=== PATIENT | female | born 1980 | race Caucasian/White ===

== ENCOUNTER 2023-03-28 14:55 | Emergency (ER) | payer OTHER, BC, SELFPAY ==
--- NOTE | 2023-03-16 15:21 | CT_ITS ---
[address] [address] Patient Name: GLADIS ANDRADE MRN: [id number] date: 1980 Sex: F Assigned Patient Location: ER Current Patient Location: ER Accession/Order Number: [id number] Exam Date: 03/16/2023 15:52 Report Date: 03/28/2023 16:27 At the request of: JAYLA SANTAMARIA Procedure: CT cervical spine wo con EXAM: CT cervical spine wo con HISTORY: Hit head COMPARISON: None. TECHNIQUE: axial CT imaging. Sagittal and coronal reformatted reconstructed sequences were performed FINDINGS: IMPRESSION: Mild reversal of the normal cervical lordosis. Vertebral body heights and alignments exhibit no fracture or listhesis. The dens and lateral masses of C1 are symmetric. Age related intervertebral disc space narrowing, endplate and uncovertebral changes. No prevertebral soft tissue edema. Electronically authenticated by: GORDON NICOLE Date: 03/28/2023 16:27
[2023-03-28 14:59] VITALS: BP 124/87; PULSE 80; RESP 18; TEMP 36.6; O2SAT 99; BMI 33.5
--- NOTE | 2023-03-28 15:20 | CT_ITS ---
The [address] [address] Patient Name: GLADIS ANDRADE MRN: [id number] date: 1980 Sex: F Assigned Patient Location: ER Current Patient Location: ER Accession/Order Number: [id number] Exam Date: 03/28/2023 15:51 Report Date: 03/28/2023 16:25 At the request of: JAYLA SANTAMARIA Procedure: CT head/brain wo con EXAM: CT head/brain wo con HISTORY: pain COMPARISON: None. TECHNIQUE: Axial CT scans through the head were obtained without IV contrast administration. Dose reduction techniques were achieved by using: automated exposure control and/or adjustment of mA and /or kV according to patient size and/or use of iterative reconstruction technique. FINDINGS: There is no acute intracranial hemorrhage or abnormal extra-axial fluid collection. No mass effect or midline shift is seen. There is no evidence of large acute territorial infarction. There is no hydrocephalus. To the limit of CT, the posterior fossa appears unremarkable. The calvaria and extra cranial soft tissues are unremarkable. The visualized orbits show no abnormal mass. The visualized paranasal sinuses show no air-fluid level. Mastoid air cells are clear. CT/CT head/brain wo con IMPRESSION: No acute intracranial process. Electronically authenticated by: ASHTYN QUEEN Date: 03/28/2023 16:25
[2023-03-28] MEDS: PROMETHAZINE HCL 25 MG/ML VIAL IM (16:46)
[2023-03-28] MEDS: KETOROLAC TROMETHAMINE 60 MG/2 ML VIAL IM (16:46)
[2023-03-28] MEDS: DEXAMETHASONE SOD PHOS 10 MG/ML VIAL PO (16:46)
[2023-03-28 16:47] VITALS: BP 113/71; PULSE 57; O2SAT 99
--- NOTE | 2023-03-28 17:01 | ED_ITS ---
HPI - General Adult General Chief complaint: Head Injury Stated complaint: BWC - UPPER EXTREMITY INJURY Time Seen by Provider: 03/28/23 15:04 Source: patient Mode of arrival: walk-in Limitations: no limitations History of Present Illness HPI narrative: 42-year-old female presents to the emergency room with a chief complaint of headache. Patient had a work injury on March 16. He was in the last lifting herself up and hit her head on the left parietal side with a shelf. She states she developed a headache. She had not been seen by any providers prior to today. She's had the call of sick from work the last couple days due to headache.does have history of migraine headaches but states this pain is different. She is alert and oriented no acute distress area complains of mild photophobia. Vital signs are stable. Head is normocephalic Related Data Allergies Allergy/AdvReac Type Severity Reaction Status Date / Time No Known Drug Allergies Allergy Verified 03/28/23 15:02 Review of Systems ROS Narrative All Systems are negative except as noted/marked.All systems reviewed and otherwise negative PFSH [facility] Social History Smoking status: Current every day smoker Exam Narrative Exam Narrative: Nurses note and vital signs reviewed and patient is not hypoxic. General: The patient appears well and in no apparent distress. Patient is resting comfortably on cart. Skin: Warm, dry, no pallor noted. There is no rash noted. Head: Normocephalic, atraumatic neck: : Neck tenderness, no midline tenderness, full range of motion Eye: Normal conjunctiva, no drainage, EOMI. PERRL Ears, Nose, Mouth, and Throat: oral mucosa is moist. Nares patent. Mouth without vesicles. Ear canals patent. Tm's without Erythema Cardiovascular: Regular Rate and Rhythm Musculoskeletal: The patient has no evidence of calf tenderness, no pitting edema, symmetrical pulses noted bilaterally Neurological: A&O x4, normal speech Psychiatric: Cooperative Constitutional Vital Signs, click to edit/add: Last Vital Signs Temp 97.8 F 03/28/23 14:59 Pulse 57 L 03/28/23 16:47 Resp 18 03/28/23 14:59 BP 113/71 03/28/23 16:47 Pulse Ox 99 03/28/23 16:47 O2 Del Method Room Air 03/28/23 14:59 Course Vital Signs Vital signs: Vital Signs Temperature 97.8 F 03/28/23 14:59 Pulse Rate 80 03/28/23 14:59 Respiratory Rate 18 03/28/23 14:59 Blood Pressure 124/87 03/28/23 14:59 Pulse Oximetry 99 03/28/23 14:59 Oxygen Delivery Method Room Air 03/28/23 14:59 Temperature 97.8 F 03/28/23 14:59 Pulse Rate 57 L 03/28/23 16:47 Respiratory Rate 18 03/28/23 14:59 Blood Pressure 113/71 03/28/23 16:47 Pulse Oximetry 99 03/28/23 16:47 Oxygen Delivery Method Room Air 03/28/23 14:59 Medical Decision Making MDM Narrative Medical decision making narrative: and presented here with a closed head injury from March 16. She's had a headache on and off for the past several days and have worsened over time. With photophobia. Head and neck CT read by radiology as no acute abnormalities. Patient was medicated here with Toradol Phenergan and Decadron. Believe the pain is post concussive versus head injury.patient instructed to follow up with occupational health here at [facility]. She does have a Workmen's Comp. and number from [facility]. Patient verbalizes understanding agrees with plan of care. Differential Diagnosis Differential Diagnosis: postconcussive syndrome, headache, head pain, closed head injury Medical Records Medical records reviewed: Yes I reviewed the patient's medical records Imaging Data CT scan - head: Radiologist's impression: Assigned Patient Location: ER Current Patient Location: ER Accession/Order Number: [id number] Exam Date: 03/28/2023 15:51 Report Date: 03/28/2023 16:25 At the request of: JAYLA SANTAMARIA Procedure: CT head/brain wo con EXAM: CT head/brain wo con HISTORY: pain COMPARISON: None. TECHNIQUE: Axial CT scans through the head were obtained without IV contrast administration. Dose reduction techniques were achieved by using: automated exposure control and/or adjustment of mA and /or kV according to patient size and/or use of iterative reconstruction technique. FINDINGS: There is no acute intracranial hemorrhage or abnormal extra-axial fluid collection. No mass effect or midline shift is seen. There is no evidence of large acute territorial infarction. There is no hydrocephalus. To the limit of CT, the posterior fossa appears unremarkable. The calvaria and extra cranial soft tissues are unremarkable. The visualized orbits show no abnormal mass. The visualized paranasal sinuses show no air-fluid level. Mastoid air cells are clear. IMPRESSION: No acute intracranial process. Discharge Plan Discharge Chief Complaint: Head Injury Clinical Impression: Closed head injury Patient Disposition: Home, Self-Care Time of Disposition Decision: 16:57 Condition: Good Instructions: Head Injury (ED) Additional Instructions: follow up with occupational health at the [facility] Stand Alone Forms: Portal Instructions Referrals: VAN CARR [Primary Care Provider] - 1 week Discharge Date/Time: 03/28/23 17:22
== END 2023-03-28 17:22 | disposition home or self-care (01) ==
PROVIDERS: Emergency Provider Emergency Medicine; PCP Family Medicine
DX: S09.8XXA Other specified injuries of head, initial encounter (principal); W22.8XXA Striking against or struck by other objects, initial encounter
CPT/HCPCS: 70450; 72125; 96372; 99285; J1100

== ENCOUNTER 2023-04-05 06:55 | Emergency (ER) | payer OTHER, BC, SELFPAY ==
[2023-04-05 07:00] VITALS: BP 129/64; PULSE 72; RESP 16; TEMP 36.4; O2SAT 99; BMI 32.3
--- NOTE | 2023-04-05 07:15 | ED.GENADUL1 ---
HPI - General Adult General Chief complaint: Headache Stated complaint: VOMITING , HEADACHE Time Seen by Provider: 04/05/23 07:01 Source: patient Mode of arrival: walk-in Limitations: no limitations History of Present Illness HPI narrative: Patient with history of recurrnet migraines presents with pain to the top and left side of her head. She was evaluated last week in our ED by Dr Holden for similar symptoms and had negative CT scans of the head and necke - she had apparently hit the top of her head on February 23 at work. She noted then - and again now - that this pain is different location than her typical migraine but otherwise the symptoms are the same - pain, nausea, photophobia, irritability. No new head injury. No fever or chills. No cough, abdominal pain or flank pain. No syncope, seizures or visual loss/change. Related Data Previous Rx's Medication Instructions Recorded ondansetron 4 mg disintegrating 4 mg PO Q6H PRN nausea or headache 04/05/23 tablet #30 tabs Allergies Allergy/AdvReac Type Severity Reaction Status Date / Time No Known Drug Allergies Allergy Verified 03/28/23 15:02 PFSH PFS Social History Smoking status: Current some day smoker Exam Narrative Exam Narrative: Nurses notes and vital signs reviewed and patient is not hypoxic. afebrile General: Well-appearing and in no apparent distress. Skin: Warm, dry, no pallor noted. No rash. Head: Normocephalic, atraumatic. Neck: Supple, non-tender. no meningismus Eye: Pupils are equal, round and EOMI. No scleral icterus. Ears, Nose, Mouth, and Throat: Oral mucosa is moist Cardiovascular: Regular Rate and Rhythm without murmur, gallop or rub. Respiratory: No accessory muscle use or respiratory distress. Lungs are clear to auscultation, no wheezing, rales or rhonchi Musculoskeletal: normal ROM GI: Abdomen is soft, non-distended. Normal bowel sounds. No tenderness to palpation. No rebound, guarding, or rigidity noted. Neurological: A&O x4. No cranial nerve dysfunction observed. No truncal ataxia. Moves all extremities. Sensation intact. Psychiatric: Cooperative and interactive. Normal mood and affect. Constitutional Vital Signs, click to edit/add: Last Vital Signs Temp 97.6 F 04/05/23 07:00 Pulse 72 04/05/23 07:00 Resp 16 04/05/23 07:00 BP 129/64 04/05/23 07:00 Pulse Ox 99 04/05/23 07:00 O2 Del Method Room Air 04/05/23 07:00 Course Vital Signs Vital signs: Vital Signs Temperature 97.6 F 04/05/23 07:00 Pulse Rate 72 04/05/23 07:00 Respiratory Rate 16 04/05/23 07:00 Blood Pressure 129/64 04/05/23 07:00 Pulse Oximetry 99 04/05/23 07:00 Oxygen Delivery Method Room Air 04/05/23 07:00 Temperature 97.6 F 04/05/23 07:00 Pulse Rate 72 04/05/23 07:00 Respiratory Rate 16 04/05/23 07:00 Blood Pressure 129/64 04/05/23 07:00 Pulse Oximetry 99 04/05/23 07:00 Oxygen Delivery Method Room Air 04/05/23 07:00 Medical Decision Making MDM Narrative Medical decision making narrative: peripheral IV established. Patient was ordered to receive normal saline IV fluid bolus, IV Toradol, IV Zofran and IV Benadryl. Pain down to 4/10 after that treatment and nausea resolved. She was given Solumedrol IV and then discharged home with prescription for zofran ODT to be taken if nausea and/or headache return. Discharge Plan Discharge Chief Complaint: Headache Clinical Impression: Migraine Patient Disposition: Home, Self-Care Time of Disposition Decision: 07:50 Prescriptions / Home Meds: New ondansetron 4 mg tablet,disintegrating 4 mg PO Q6H PRN (Reason: nausea or headache) Qty: 30 0RF Instructions: Migraine Headache (ED) Stand Alone Forms: Portal Instructions Referrals: VAN CARR [Primary Care Provider] - 1 week
[2023-04-05] MEDS: DIPHENHYDRAMINE HCL 50 MG/ML (1ML) VIAL 25 MG IV (07:26)
[2023-04-05] MEDS: ONDANSETRON PF 4 MG/2 ML VIAL IV (07:26)
[2023-04-05] MEDS: 0.9 % SODIUM CHLORIDE 1,000 ML 999 ML IV (07:26)
[2023-04-05] MEDS: KETOROLAC TROMETHAMINE 30 MG/ML VIAL IM (07:27)
[2023-04-05] MEDS: METHYLPREDNISOLONE SOD SUCC PF 125 MG/2 ML VIAL IVP (08:00)
[2023-04-05 08:06] VITALS: PULSE 80; RESP 16; TEMP 36.4; O2SAT 99
== END 2023-04-05 08:09 | disposition home or self-care (01) ==
PROVIDERS: Emergency Provider Emergency Medicine; PCP Family Medicine
DX: G43.909 Migraine, unspecified, not intractable, without status migrainosus (principal); F17.210 Nicotine dependence, cigarettes, uncomplicated
CPT/HCPCS: 96372; 96374; 96375; 99284; J2930

== ENCOUNTER 2023-04-24 16:39 | Emergency (ER) | payer BC, SELFPAY ==
[2023-04-24] VITALS (17 sets, daily range): BP systolic 103–123; BP diastolic 73–81; PULSE 64–82; RESP 20; TEMP 36.7; O2SAT 96–100; BMI 29.5
--- NOTE | 2023-04-24 17:43 | ED_ITS ---
HPI - Abdominal Pain General Chief Complaint: Abdominal Pain Stated Complaint: Flank Pain Time Seen by Provider: 04/24/23 17:00 Source: patient Mode of arrival: walk-in Limitations: no limitations History of Present Illness HPI narrative: Right flank and abdominal pain that began a few days ago but worsened this afternoon. Patient told me that a few weeks ago she had some right lower back pain, slightly different than today's pain and thought it might be a pulled muscle . No urinary symptoms other than frequency. No fever or chills. She took some tylenol for the pain without improvement. PMHx includes kidney stones. She had partial hysterectomy. Related Data Previous Rx's Medication Instructions Recorded ondansetron 4 mg disintegrating 4 mg PO Q6H PRN nausea or headache 04/05/23 tablet #30 tabs hydrocodone 5 mg-acetaminophen 325 1 tab PO Q6H PRN pain #20 tabs 04/24/23 mg tablet ketorolac 10 mg tablet 10 mg PO Q8H PRN pain #14 tabs 04/24/23 ondansetron 4 mg disintegrating 4 mg PO Q6H PRN nausea and 04/24/23 tablet vomiting #20 tabs tamsulosin 0.4 mg capsule (Flomax) 0.4 mg PO DAILY PRN kidney stone 04/24/23 #30 caps Allergies Allergy/AdvReac Type Severity Reaction Status Date / Time No Known Drug Allergies Allergy Verified 03/28/23 15:02 [facility] Social History Smoking status: Never smoker Exam Narrative Exam Narrative: Nurses notes and vital signs reviewed and patient is not hypoxic. afebrile General: Uncomfortable. Skin: Warm, dry, no pallor noted. No rash to abdomen or flank. Head: Normocephalic, atraumatic. Eye: Pupils are equal, round and EOMI. No scleral icterus. Cardiovascular: Regular Rate and Rhythm without murmur, gallop or rub. Respiratory: No accessory muscle use or respiratory distress. Lungs are clear to auscultation, no wheezing, rales or rhonchi Back: Right CVA tenderness Musculoskeletal: normal ROM GI: Abdomen is soft, non-distended. Normal bowel sounds. No masses appreciated. mild right sided tenderness to palpation. No rebound, guarding, or rigidity noted. Neurological: A&O x4. No cranial nerve dysfunction observed. No truncal ataxia. Moves all extremities. Sensation intact. Psychiatric: Cooperative and interactive. Normal mood and affect. Constitutional Vital Signs, click to edit/add: Last Vital Signs Temp 98.1 F 04/24/23 16:44 Pulse 64 04/24/23 18:00 Resp 20 04/24/23 16:44 BP 115/77 04/24/23 18:00 Pulse Ox 100 04/24/23 18:00 O2 Del Method Room Air 04/24/23 16:44 Course Vital Signs Vital signs: Vital Signs Temperature 98.1 F 04/24/23 16:44 Pulse Rate 82 04/24/23 16:44 Respiratory Rate 20 04/24/23 16:44 Blood Pressure 123/78 04/24/23 16:44 Pulse Oximetry 97 04/24/23 16:44 Oxygen Delivery Method Room Air 04/24/23 16:44 Temperature 98.1 F 04/24/23 16:44 Pulse Rate 64 04/24/23 18:00 Respiratory Rate 20 04/24/23 16:44 Blood Pressure 115/77 04/24/23 18:00 Pulse Oximetry 100 04/24/23 18:00 Oxygen Delivery Method Room Air 04/24/23 16:44 MDM - Abdominal Pain MDM Narrative Medical decision making narrative: urine sent for testing. Peripheral IV obtained and blood drawn and sent for testing as well. Patient ordered to receive normal saline IV fluid, IV Toradol and IV Zofran. CT scan of the abdomen pelvis without contrast was also ordered to be obtained to evaluate her right flank pain and right abdominal pain further. WBC normal. CMP negative, UA negative except for blood. CT revealed 4mm distal right ureteral calculus with mild right hydroureteronephrosis. Bilateral 2mm non-obstructive renal calculi also noted, per radiologist. Patient informed of results, diagnosis and plan for treatment. She was prescribed Flomax, Zofran, Plover, Toradol and referred to Urologist electronic repair troubleshooter for follow up. Lab Data Attestation: I reviewed the patient's lab results. Labs: Lab Results 04/24/23 Range/Units 17:15 WBC 6.8 (4.0-11.0) 10^3/uL RBC 4.36 (4.20-5.40) 10^6/uL Hgb 13.1 (12.0-16.0) g/dL Hct 41.4 (36.0-48.0) % MCV 95.0 (81.0-99.0) fL MCH 30.0 (26.7-34.0) pg MCHC 31.6 (29.9-35.2) g/dL RDW 12.1 (11.0-15.0) % Plt Count 236 (150-450) 10^3/uL MPV 11.0 (9.5-13.5) fL Neut % (Auto) 67.2 (43.0-75.0) % Lymph % (Auto) 23.7 (20.5-60.0) % [place] % (Auto) 7.2 (1.7-12.0) % Eos % (Auto) 1.3 (0.9-7.0) % Baso % (Auto) 0.3 (0.2-2.0) % Neut # (Auto) 4.6 (1.4-6.5) 10^3/uL Lymph # (Auto) 1.6 (1.2-3.8) 10^3/uL [place] # (Auto) 0.5 (0.3-0.8) 10^3/uL Eos # (Auto) 0.1 (0.0-0.7) 10^3/uL Baso # (Auto) 0.0 (0.0-0.1) 10^3/uL Abs Immat Gran (auto) 0.02 (0.00-0.03) 10^3/uL Imm/Tot Granulo (auto) 0.3 (0.0-0.5) % Sodium 138 (136-145) mmol/L Potassium 3.3 L (3.5-5.1) mmol/L Chloride 104 (98-107) mmol/L Carbon Dioxide 23.8 (21.0-32.0) mmol/L Anion Gap 13.5 BUN 9.0 (7.0-18.0) mg/dL Creatinine 0.94 (0.55-1.02) mg/dL Est GFR ( Amer) >60 (>=60) Est GFR (Non-Af Amer) >60 (>=60) BUN/Creatinine Ratio 9.6 Glucose 108 H (74-106) mg/dL Calcium 9.0 (8.5-10.1) mg/dL Total Bilirubin 0.4 (0.2-1.0) mg/dL AST <5 L (15-37) U/L ALT 10 L (14-59) U/L Alkaline Phosphatase 85 (46-116) U/L Total Protein 7.6 (6.4-8.2) g/dL Albumin 4.0 (3.4-5.0) g/dL Globulin 3.6 g/dL Albumin/Globulin Ratio 1.1 Urine Color Yellow (YELLOW) Urine Clarity Clear (CLEAR) Urine pH 5.5 (5.0-9.0) Ur Specific [place] >=1.030 A (1.005-1.025) Urine Protein Trace (NEG/TRACE) mg/dL Urine Glucose (UA) Negative (NEGATIVE) mg/dL Urine Ketones Negative (NEGATIVE) mg/dL Urine Occult Blood Moderate A (NEGATIVE) Urine Nitrite Negative (NEGATIVE) Urine Bilirubin Negative (NEGATIVE) Urine Urobilinogen 0.2 (0.2-1.0) EU/dL Ur Leukocyte Esterase Negative (NEGATIVE) Imaging Data CT scan - abdomen: Radiologist's impression: Patient Name: GLADIS ANDRADE MRN: [id number] date: 1980 Sex: F Assigned Patient Location: ER Current Patient Location: ER Accession/Order Number: [id number] Exam Date: 04/24/2023 18:09 Report Date: 04/24/2023 18:46 At the request of: KEISHA VOGEL Procedure: CT abdomen pelvis wo con EXAMINATION: CT abdomen pelvis wo con, 04/24/2023 3:09 PM PST HISTORY: right flank and abd pain, hx of kidney stones COMPARISON: 08/16/2021 TECHNIQUE: CT scan of the abdomen and pelvis was performed without IV contrast. CT dose reduction technique was used, including Automated Exposure Control. FINDINGS: Lung: No significant finding. Liver: No significant finding. Gallbladder: No significant finding. Spleen: No significant finding. Pancreas: No significant finding. Adrenal glands: No significant finding. Kidneys, ureters and bladder: Multiple bilateral nonobstructive renal calculi measuring up to 2 mm. 4 mm right-sided distal ureteral calculus. Mild right hydroureteronephrosis. Bowel: No evidence of bowel obstruction. Normal appendix. Peritoneum/retroperitoneum: No significant finding. Lymph nodes: No significant finding. Vessels: No significant finding. Body wall: No significant finding. Reproductive: No significant finding. Bones: No significant finding. IMPRESSION: 4 mm right distal ureteral calculus with mild right hydroureteronephrosis. Additional nonobstructive bilateral renal calculi measuring up to 2 mm. Electronically authenticated by: SAMMY PARIS Date: 04/24/2023 18:46 Discharge Plan Discharge Chief Complaint: Abdominal Pain Clinical Impression: Right distal ureteral calculus, Renal colic on right side Patient Disposition: Home, Self-Care Time of Disposition Decision: 18:56 Prescriptions / Home Meds: New ondansetron 4 mg tablet,disintegrating 4 mg PO Q6H PRN (Reason: nausea and vomiting) Qty: 20 0RF tamsulosin [Flomax] 0.4 mg capsule 0.4 mg PO DAILY PRN (Reason: kidney stone) Qty: 30 0RF ketorolac 10 mg tablet 10 mg PO Q8H PRN (Reason: pain) Qty: 14 0RF hydrocodone-acetaminophen 5-325 mg tablet 1 tab PO Q6H PRN (Reason: pain) Qty: 20 0RF Rx Instructions: ICD N20.2 No Action ondansetron 4 mg tablet,disintegrating 4 mg PO Q6H PRN (Reason: nausea or headache) Qty: 30 0RF Instructions: Renal Colic (ED), Ureteral Stones (ED) Stand Alone Forms: Portal Instructions Referrals: Christian Loera MD [Physician] - As soon as possible VAN CARR [Primary Care Provider] - 1 week
[2023-04-24 17:55] LABS: Basophils Percent Auto 0.3 % (0.2-2.0); Eosinophils Absolute Auto 0.1 10^3/uL (0.0-0.7); Eosinophils Percent Auto 1.3 % (0.9-7.0); Hematocrit 41.4 % (36.0-48.0); Hemoglobin 13.1 g/dL (12.0-16.0); Immature Granulocytes Abs Auto 0.02 10^3/uL (0.00-0.03); Immature Granulocytes Pct Auto 0.3 % (0.0-0.5); Lymphocytes Absolute Auto 1.6 10^3/uL (1.2-3.8); Lymphocytes Percent Auto 23.7 % (20.5-60.0); Mean Corpuscular HGB Conc 31.6 g/dL (29.9-35.2); Monocytes Absolute Auto 0.5 10^3/uL (0.3-0.8); Monocytes Percent Auto 7.2 % (1.7-12.0); Neutrophils Absolute Auto 4.6 10^3/uL (1.4-6.5); Neutrophils Percent Auto 67.2 % (43.0-75.0); Platelet Count 236 10^3/uL (150-450); Red Blood Count 4.36 10^6/uL (4.20-5.40); Red Cell Distribution Width 12.1 % (11.0-15.0); White Blood Count 6.8 10^3/uL (4.0-11.0)
[2023-04-24] MEDS: ONDANSETRON PF 4 MG/2 ML VIAL IV (17:58)
[2023-04-24] MEDS: 0.9 % SODIUM CHLORIDE 1,000 ML 999 ML IV (17:58)
[2023-04-24] MEDS: KETOROLAC TROMETHAMINE 30 MG/ML VIAL IVP (17:58)
[2023-04-24 18:11] LABS: Alanine Aminotransferase 10 U/L (14-59); Albumin Globulin Ratio 1.1; Alkaline Phosphatase 85 U/L (46-116); Anion Gap 13.5; Aspartate Amino Transferase <5 U/L (15-37); BUN Creatinine Ratio 9.6; Bilirubin Total 0.4 mg/dL (0.2-1.0); Carbon Dioxide 23.8 mmol/L (21.0-32.0); Chloride 104 mmol/L (98-107); Estimated GFR (African America >60 (>=60); Estimated GFR (Non-African Ame >60 (>=60); Globulin 3.6 g/dL; Glucose 108 mg/dL (74-106); Potassium 3.3 mmol/L (3.5-5.1); Sodium 138 mmol/L (136-145); Total Protein 7.6 g/dL (6.4-8.2)
[2023-04-24 18:14] LABS: Bilirubin Urine NEGATIVE (NEGATIVE); Blood Urine MODERATE (NEGATIVE); Clarity Urine CLEAR (CLEAR); Color Urine YELLOW (YELLOW); Glucose Urine UA NEGATIVE (NEGATIVE); Ketones Urine NEGATIVE (NEGATIVE); Leukocyte Esterase Urine NEGATIVE (NEGATIVE); Nitrite Urine NEGATIVE (NEGATIVE); Protein Urine TRACE mg/dL (NEG/TRACE); Specific Gravity Urine >=1.030 (1.005-1.025); Urobilinogen Urine 0.2 EU/dL (0.2-1.0); pH Urine 5.5 (5.0-9.0)
--- NOTE | 2023-04-24 18:14 | CT_ITS ---
[place] [id number] Patient Name: GLADIS ANDRADE MRN: [id number] date: 1980 Sex: F Assigned Patient Location: ER Current Patient Location: ER Accession/Order Number: [id number] Exam Date: 04/24/2023 18:09 Report Date: 04/24/2023 18:46 At the request of: KEISHA VOGEL Procedure: CT abdomen pelvis wo con EXAMINATION: CT abdomen pelvis wo con, 04/24/2023 3:09 PM PST HISTORY: right flank and abd pain, hx of kidney stones COMPARISON: 08/16/2021 TECHNIQUE: CT scan of the abdomen and pelvis was performed without IV contrast. CT dose reduction technique was used, including Automated Exposure Control. FINDINGS: Lung: No significant finding. Liver: No significant finding. Gallbladder: No significant finding. Spleen: No significant finding. Pancreas: No significant finding. Adrenal glands: No significant finding. Kidneys, ureters and bladder: Multiple bilateral nonobstructive renal calculi measuring up to 2 mm. 4 mm right-sided distal ureteral calculus. Mild right hydroureteronephrosis. Bowel: No evidence of bowel obstruction. Normal appendix. Peritoneum/retroperitoneum: No significant finding. Lymph nodes: No significant finding. Vessels: No significant finding. Body wall: No significant finding. Reproductive: No significant finding. Bones: No significant finding. CT/CT abdomen pelvis wo con IMPRESSION: 4 mm right distal ureteral calculus with mild right hydroureteronephrosis. Additional nonobstructive bilateral renal calculi measuring up to 2 mm. Electronically authenticated by: SAMMY PARIS Date: 04/24/2023 18:46
[2023-04-24 18:15] LABS: Urine Microscopic Indicated NO
== END 2023-04-24 19:17 | disposition home or self-care (01) ==
PROVIDERS: Emergency Provider Emergency Medicine; PCP Family Medicine
DX: N13.2 Hydronephrosis with renal and ureteral calculous obstruction (principal); Z90.711 Acquired absence of uterus with remaining cervical stump; Z87.442 Personal history of urinary calculi
CPT/HCPCS: 36415; 74176; 80053; 81003; 85025; 96374; 96375; 99285